=== PATIENT | female | born 1955 | race Caucasian/White ===

== ENCOUNTER → 2019-10-05 | Outpatient (CLI) | payer BC, OTHER ==
--- NOTE | 2019-10-05 11:00 | Diagnostic Imaging Report ---
INDICATION: Screening for osteoporosis. COMPARISON: None. FINDINGS: The bone mineral density of hips and spine was measured. There are no prior studies for comparison. T score for the spine is 0.9. This value is within normal limits. The total T score for the left hip is -1.2 and for the right hip -1.3. The T score for the right femoral neck is -1.5 and for the left femoral neck -1.9. All of these values indicate osteopenia. AP Spine L1-L4: [BMD (g/cm2): 1.309] [T-Score: 0.9] [Z-Score: 1.6] [BMD Previous: NA] [BMD % Change: NA] LT Hip Neck: [BMD (g/cm2): 0.776] [T-Score: -1.9] [Z-Score: -1.0] LT Hip Total: [BMD (g/cm2):0.856] [T-Score:-1.2] [Z-Score: -0.7] [BMD Previous: NA] [BMD % Change: NA] RT Hip Neck: [BMD (g/cm2):0.826] [T-Score:-1.5] [Z-Score:-0.7] RT Hip Total: [BMD (g/cm2):0.839] [T-score:-1.3] [Z-Score:-0.8] [BMD Previous:NA] [BMD % Change:NA] *Indicates significant change from prior examination based on 95% confidence level. World Health Organization criteria for BMD interpretation classify patients as Normal (T-score at or above -1.0), Osteopenic (T-score between -1.0 and -2.5) or Osteoporotic (T-score at or below -2.5). LIMITATIONS AND MODIFICATION: None. FRACTURE RISK (FRAX SCORE): The ten year probability of (%): Major Osteoporotic Fracture: [9.9] Hip Fracture: [2.1] IMPRESSION: 1. The bone mineral density of spine is within normal limits. 2. There is osteopenia of the hips and femoral necks. 3. See below National Osteoporosis Foundation guidelines on when to potentially initiate pharmacologic therapy. Based on the National Osteoporosis Foundation Guidelines, pharmacologic treatment should be initiated in any of the following, unless clinical conditions suggest otherwise: * Any patient with prior fragility fracture of the hip or vertebrae. A spine fracture indicates 5X risk for subsequent spine fracture and 2X risk for subsequent hip fracture. * Osteoporosis (T-score <-2.5). * Postmenopausal women and men age 50 and older with low bone mass/osteopenia (T-score between -1.0 and -2.5) by DXA and 10-year major osteoporotic fracture greater than 20% or a 10-year probability of hip fracture greater than 3%. These fracture risks are supplied above in the FRAX score, if applicable. * Clinician judgement and/or patient preferences may indicate treatment for people with 10-year fracture probabilities above or below these levels. Dictated by: Dictated on workstation # [id number]
== END ==
LOC: RAD 09:07
PROVIDERS: ATTEND Nurse Practitioner Family
DX: Z13.820 Encounter for screening for osteoporosis (principal); M85.851 Other specified disorders of bone density and structure, right thigh; M85.852 Other specified disorders of bone density and structure, left thigh; Z78.0 Asymptomatic menopausal state
CPT/HCPCS: 77080

== ENCOUNTER → 2020-08-24 | Outpatient (CLI) | payer OTHER | LOC: CARD 10:43 | PROVIDERS: ATTEND Nurse Practitioner | DX: I51.7 Cardiomegaly (principal); I35.0 Nonrheumatic aortic (valve) stenosis | CPT/HCPCS: 93306 ==

== ENCOUNTER → 2020-10-23 | Outpatient (CLI) | payer OTHER ==
--- NOTE | 2020-10-23 14:07 | Diagnostic Imaging Report ---
INDICATION: Multinodular goiter, post right-sided lobectomy 1994. TECHNIQUE: Multiple Real-time grayscale sonographic images were obtained of the thyroid bed and soft tissue neck. CORRELATION STUDY: None. FINDINGS: The right lobe is not visualized, compatible with lobectomy. No definitive soft tissue mass at the right thyroid bed. The left lobe is 4.8 x 1.5 x 0.9 cm. There is normal echotexture throughout the left lobe. No discrete mass. There are what appear to be 3 small probable lymph nodes along the left aspect of the neck. The largest is 1.4 x 0.9 cm. The second one is 1.2 x 0.7 cm and the third one 1.1 x 0.7 cm. IMPRESSION: 1.Post right thyroid lobectomy. 2. Normal appearance of the residual left thyroid lobe. 3. Likely small lymph nodes over the left aspect of the neck, nonspecific as to etiology and/or significance. Dictated by: Dictated on workstation # [id number]
== END ==
LOC: RAD 12:02
PROVIDERS: ATTEND Nurse Practitioner Family
DX: E04.2 Nontoxic multinodular goiter (principal); Z90.89 Acquired absence of other organs
CPT/HCPCS: 76536